=== PATIENT | female | born 1955 | race Caucasian/White ===

== ENCOUNTER 2017-04-13 11:48 | Day surgery (SDC) | payer OTHER ==
[2017-04-13] MEDS ORDERED: FENTAnyl 50 MCG/ML VIAL (14:19)
[2017-04-13] MEDS ORDERED: ATROPINE 1 MG/10 ML SYRINGE (14:19)
[2017-04-13] MEDS ORDERED: MIDAZOLAM 1 MG/ML 2 ML INJ ×2 (14:19)
== END 2017-04-13 15:47 | disposition home or self-care (01) ==
LOC: GIL 11:48
DX: Z12.11 Encounter for screening for malignant neoplasm of colon (principal); K29.70 Gastritis, unspecified, without bleeding; K44.9 Diaphragmatic hernia without obstruction or gangrene; K21.9 Gastro-esophageal reflux disease without esophagitis; K64.8 Other hemorrhoids
CPT/HCPCS: 43239; 87081